=== PATIENT | female | born 1925 | race Caucasian/White ===

== ENCOUNTER 2016-12-29 12:05 | Inpatient (IN) | payer OTHER ==
[~2016-12-29] VITALS: Ht 162.6 cm; Wt 86.7 kg
[2016-12-29] MEDS ORDERED: SODIUM CHLORIDE 0.9% 1000ML 1,000 ML IV STA (12:28)
--- NOTE | 2016-12-29 12:57 | DIAGNOSTIC IMAGING REPORT ---
SINGLE VIEW CHEST CLINICAL HISTORY: Generalized weakness. FINDINGS: An AP, portable, upright chest radiograph is obtained. No prior studies are available for comparison at the time of dictation. The examination is degraded by portable technique and patient rotation. The heart is enlarged and there is atherosclerotic calcification of the thoracic aorta. A hiatal hernia is identified. The pulmonary vasculature is noncongested. There is chronic appearing interstitial thickening and elevation of right hemidiaphragm. A 2.0 cm calcified nodule is seen at the right lung base. There is no airspace consolidation typical for pneumonia or large pleural effusion. Apical scarring is observed. No pneumothorax is seen. The skeletal structures are osteopenic. Degenerative change and scoliosis are noted in the thoracic spine. IMPRESSION: 1. Cardiomegaly without radiographic evidence of congestive failure. 2. There is no airspace consolidation or large pleural effusion. 3. Hiatal hernia. 4. A 2.0 cm calcified nodule is seen at the right lung base. This likely represents a granuloma or hamartoma. Electronically signed by: Gomez Charles M.D. 12/29/2016 12:56 PM Dictated Date/Time: 12/29/2016 12:54 PM
[2016-12-29] MEDS ORDERED: PRLSR20 PO (13:08)
[2016-12-29] MEDS ORDERED: ATOR10TA82 PO (13:08)
[2016-12-29] MEDS ORDERED: SPIR25TA89 PO (13:08)
[2016-12-29] MEDS ORDERED: DABI150C PO (13:08)
[2016-12-29] MEDS ORDERED: FURO20TA PO (13:08)
[2016-12-29] MEDS ORDERED: SOTA80TA PO (13:08)
[2016-12-29 13:12] LABS: BASO % 0.1 %; BASO ABS # 0.02 K/uL (0-0.2); COMPLETE YES; EOS % 0.3 %; HEMATOCRIT 45.1 % (37-47); IG% 0.4 %; LYMPH % 7.1 %; LYMPH ABS # 1.35 K/uL (1.2-3.4); MEAN CORPUSCULAR HEMOGLOBIN 32.5 pg (25-34); MEAN CORPUSCULAR HGB CONC 34.6 g/dl (32-36); MEAN PLATELET VOLUME 11.3 fL (7.4-10.4); MONO % 8.3 %; NEUT % 83.8 %; PLATELET COUNT 264 K/uL (130-400); WHITE BLOOD COUNT 18.94 K/uL (4.8-10.8)
[2016-12-29 13:18] LABS: BLOOD UREA NITROGEN 12 mg/dl (7-18); GLUCOSE 131 mg/dl (70-99)
[2016-12-29 13:19] LABS: ALT/SGPT 19 U/L (12-78); BUN/CREATININE RATIO 10.8 (10-20); CARBON DIOXIDE 24 mmol/L (21-32); CHLORIDE 103 mmol/L (98-107); MAGNESIUM 2.2 mg/dl (1.8-2.4); POTASSIUM 3.9 mmol/L (3.5-5.1); SODIUM 138 mmol/L (136-145)
[2016-12-29 13:20] LABS: INR 1.1 (0.9-1.1); PARTIAL THROMBOPLASTIN RATIO 1.7; PROTHROMBIN TIME (PATIENT) 12.3 SECONDS (9.0-12.0)
[2016-12-29 13:29] LABS: ALKALINE PHOSPHATASE 152 U/L (45-117); AST/SGOT 12 U/L (15-37)
--- NOTE | 2016-12-29 14:25 | DIAGNOSTIC IMAGING REPORT ---
ULTRASOUND RIGHT UPPER QUADRANT ABDOMEN CLINICAL HISTORY: Indigestion. Right-sided chest pain. Leukocytosis. COMPARISON STUDY: No priors. TECHNIQUE: Real-time, grayscale, and color flow sonography of the right upper quadrant of the abdomen was performed. Images are reviewed in the transverse and longitudinal planes. FINDINGS: Liver: The liver is normal in size and echotexture. There is no intrahepatic biliary ductal dilatation. The main portal vein is patent. Gallbladder: The gallbladder is normal in appearance. No gallstones are identified. There is no gallbladder wall thickening or pericholecystic fluid. A sonographic Castro's sign is reportedly absent. The common bile duct measures up to 0.6 cm in diameter. Pancreas: Visualized portions of the pancreatic head and body are normal in appearance. Right kidney: Survey images of the right kidney demonstrate cortical atrophy. There is no hydronephrosis. Ascites: None. IMPRESSION: No acute sonographic abnormality is identified in the right upper quadrant. No gallstones are seen. Electronically signed by: Gomez Charles M.D. 12/29/2016 2:24 PM Dictated Date/Time: 12/29/2016 2:22 PM
[2016-12-29 14:43] LABS: URINE APPEARANCE CLEAR (CLEAR); URINE BILIRUBIN NEG (NEG); URINE COLOR YELLOW; URINE EPITHELIAL CELL AUTO >30 /lpf (0-5); URINE NITRITE NEG (NEG); URINE SPECIFIC GRAVITY 1.014 (1.000-1.030); UROBILINOGEN NEG (NEG)
[2016-12-29 14:47] LABS: MANUAL MICROSCOPIC REQUIRED? NO; REVIEW REQ? YES
[2016-12-29 14:55] LABS: URINE MUCUS PRESENT (NONE PRSENT)
[2016-12-29] MEDS ORDERED: CEFTRIAXONE SOD INJ 1 GM ADDVIAL IV STA (15:09)
[2016-12-29 16:05] VITALS: O2SAT 95; BMI 32.9
[2016-12-29] MEDS ORDERED: ACETAMINOPHEN 325 MG TAB PO PRN (16:15)
[2016-12-29] MEDS ORDERED: ONDANSETRON INJ 2 MG/ML 2 ML VIAL IV PRN (16:15)
[2016-12-29] MEDS ORDERED: PANTOprazole INJ 40 MG in SYRINGE 0 ML IV ONE (16:30)
[2016-12-29 16:36] VITALS: Ht 162.6 cm; Wt 86.7 kg
--- NOTE | 2016-12-29 16:59 | History and Physical ---
History & Physical Date & Time of Service: Dec 29, 2016 at 16:31 Chief Complaint: Very Tired, Don't Feel Well Primary Care Physician: Aime Aparicio M.D. History of Present Illness Source: patient, family Patient is an 89 Yr old female with PMH of Atrial fibrillation on pradaxa, CKD III, GERD, HTN, HLP, lumbago and other problems presents with history of generalized weakness and not feeling herself since last 2 days. She feels she had indigestion and has been burping a lot and has nausea since 2 days. Reports taking omeprazole at home without much help. Gives history of recent travel to [place] where she was in contact with her daughter who was recovering from a viral illness. Reports associated poor oral intake secondary to decreased appetite and feeling to have cold like symptoms. Has chronic runny nose. Also reports right sided discomfort under her right breast which is intermittent and improves with support. Denies any history of fever, chest pain, SOB, cough, abd pain, diarrhea, urinary symptoms (frequency, burning, hematuria). Also denies any history of visual changes, LOC, rash, leg swelling. She has not been taking her medications since 2 days secondary to nausea. No other relevant history could be obtained. Past Medical/Surgical History Medical Problems: (1) Atrial fibrillation Status: Chronic (2) Atrial fibrillation Status: Chronic (3) Hypertension Status: Chronic Surgical Problems: (1) S/P hernia repair Status: Resolved (2) S/P hip replacement Status: Resolved Family History Reviewed. Not relevant Social History Smoking Status: Former Smoker Alcohol Use: socially Drug Use: none Allergies Coded Allergies: No Known Allergies (Unverified , 12/29/16) Home Medications Scheduled Atorvastatin (Lipitor), 10 MG PO Q2D Dabigatran Etexilate Mesylate (Pradaxa), 150 MG PO BID Furosemide (Lasix), 20 MG PO DAILY Sotalol Hcl (Sotalol Hcl), 1 TAB PO BID Spironolactone (Aldactone), 25 MG PO DAILY Scheduled PRN Omeprazole (Prilosec), 20 MG PO DAILY PRN for GI Upset Review of Systems See HPI for pertinent positives & negatives. A total of 10 systems reviewed and were otherwise negative. Physical Exam Vital Signs Date Time Temp Pulse Resp B/P (MAP) Pulse Ox O2 Delivery O2 Flow Rate FiO2 12/29/16 15:50 83 21 164/101 95 12/29/16 15:35 73 19 93 12/29/16 13:50 85 15 93 12/29/16 13:48 88 16 168/93 94 Room Air 12/29/16 13:41 168/93 12/29/16 13:35 100 19 93 12/29/16 13:20 108 26 93 12/29/16 13:05 106 20 93 12/29/16 12:58 92 12/29/16 12:51 94 Room Air 12/29/16 12:50 115 25 12/29/16 12:06 36.7 102 17 144/83 96 Room Air General Appearance: WD/WN, no apparent distress Head: normocephalic, atraumatic Eyes: normal inspection, PERRL, EOMI ENT: normal ENT inspection, hearing grossly normal Neck: supple, trachea midline Respiratory/Chest: chest non-tender, lungs clear, normal breath sounds, no respiratory distress, no accessory muscle use Cardiovascular: no edema, no murmur, + irregularly irregular Abdomen/GI: normal bowel sounds, non tender, soft, no organomegaly Back: normal inspection Extremities/Musculoskelatal: normal inspection, no pedal edema 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 nml as tested, no motor/sensory deficits, alert, normal mood/affect, oriented x 3 Skin: normal color, warm/dry, no rash Diagnostics Laboratory Results Results Past 24 Hours Test 12/29/16 12:50 12/29/16 13:35 12/29/16 16:16 Range/Units White Blood Count 18.94 4.8-10.8 K/uL Red Blood Count 4.80 4.2-5.4 M/uL Hemoglobin 15.6 12.0-16.0 g/dL Hematocrit 45.1 37-47 % Mean Corpuscular Volume 94.0 80-100 fL Mean Corpuscular Hemoglobin 32.5 25-34 pg Mean Corpuscular Hemoglobin Concent 34.6 32-36 g/dl Platelet Count 264 130-400 K/uL Mean Platelet Volume 11.3 7.4-10.4 fL Neutrophils (%) (Auto) 83.8 % Lymphocytes (%) (Auto) 7.1 % Monocytes (%) (Auto) 8.3 % Eosinophils (%) (Auto) 0.3 % Basophils (%) (Auto) 0.1 % Neutrophils # (Auto) 15.87 1.4-6.5 K/uL Lymphocytes # (Auto) 1.35 1.2-3.4 K/uL Monocytes # (Auto) 1.57 0.11-0.59 K/uL Eosinophils # (Auto) 0.05 0-0.5 K/uL Basophils # (Auto) 0.02 0-0.2 K/uL RDW Standard Deviation 45.6 36.4-46.3 fL RDW Coefficient of Variation 13.2 11.5-14.5 % Immature Granulocyte % (Auto) 0.4 % Immature Granulocyte # (Auto) 0.08 0.00-0.02 K/uL Prothrombin Time 12.3 9.0-12.0 SECONDS Prothromb Time International Ratio 1.1 0.9-1.1 Activated Partial Thromboplast Time 44.8 21.0-31.0 SECONDS Partial Thromboplastin Ratio 1.7 Sodium Level 138 136-145 mmol/L Potassium Level 3.9 3.5-5.1 mmol/L Chloride Level 103 98-107 mmol/L Carbon Dioxide Level 24 21-32 mmol/L Anion Gap 11.0 3-11 mmol/L Blood Urea Nitrogen 12 7-18 mg/dl Creatinine 1.10 0.60-1.20 mg/dl Est Creatinine Clear Calc Drug Dose 36.6 ml/min Estimated GFR () 51.5 Estimated GFR (Non- 44.5 BUN/Creatinine Ratio 10.8 10-20 Random Glucose 131 70-99 mg/dl Calcium Level 9.0 8.5-10.1 mg/dl Magnesium Level 2.2 1.8-2.4 mg/dl Total Bilirubin 1.0 0.2-1 mg/dl Direct Bilirubin 0.2 0-0.2 mg/dl Aspartate Amino Transf (AST/SGOT) 12 15-37 U/L Alanine Aminotransferase (ALT/SGPT) 19 12-78 U/L Alkaline Phosphatase 152 45-117 U/L Total Creatine Kinase 20 26-192 U/L Creatine Kinase MB < 0.5 0.5-3.6 ng/ml Creatine Kinase MB Ratio 0-3.0 Troponin I < 0.015 0-0.045 ng/ml Total Protein 7.8 6.4-8.2 gm/dl Albumin 3.2 3.4-5.0 gm/dl Thyroid Stimulating Hormone (TSH) 2.540 0.300-4.500 uIu/ml Urine Color YELLOW Urine Appearance CLEAR CLEAR Urine pH 6.0 4.5-7.5 Urine Specific [place] 1.014 1.000-1.030 Urine Protein TRACE NEG Urine Glucose (UA) NEG NEG Urine Ketones 1+ NEG Urine Occult Blood 2+ NEG Urine Nitrite NEG NEG Urine Bilirubin NEG NEG Urine Urobilinogen NEG NEG Urine Leukocyte Esterase NEG NEG Urine WBC (Auto) 1-5 0-5 /hpf Urine RBC (Auto) 10-30 0-4 /hpf Urine Hyaline Casts (Auto) 5-10 0-5 /lpf Urine Epithelial Cells (Auto) >30 0-5 /lpf Urine Bacteria (Auto) 1+ NEG Urine Renal Epithelial Cells 0-5 /lpf Urine Pathogenic Casts 0 /lpf Urine Mucus PRESENT NONE PRSENT Microbiology Results 12/29/16 Blood Culture, Kathy Batch Pending 12/29/16 Blood Culture, Kathy Batch Pending 12/29/16 Urine Culture, Received Pending Diagnostic Radiology CXR: 1. Cardiomegaly without radiographic evidence of congestive failure. 2. There is no airspace consolidation or large pleural effusion. 3. Hiatal hernia. 4. A 2.0 cm calcified nodule is seen at the right lung base. This likely represents a granuloma or hamartoma. Gall bladder USD: : No acute sonographic abnormality is identified in the right upper quadrant. No gallstones are seen. EKG EKG: Normal sinus rhythm with sinus arrhythmia Right bundle branch block Abnormal ECG No previous ECGs available Impression Assessment and Plan SIRS: Presented with Tachycardia, leukocytosis UA: possible UTI. denies urinary symptoms CXR: no signs of consolidation Gall bladder USD:no acute process Start Ceftriaxone empirically for possible UTI Check PCR for flu Blood and Urine cultures Check procalcitonin, lactate levels IV Fluids Generalized weakness; Likely secondary to acute illness PT/OT Right sided Chest discomfort: Likely not ACS, Likely GERD EKG: no signs of ischemia 1st set troponin negative Trend cardiac enzymes Repeat EKG with chest pain GERD: Presents with belching Start PPI takes over the counter omeprazole PRN Atrial fibrillation: Missed medications since 2 days continue sotalol, Pradaxa monitor in tele HTN: hold diuretics in setting of SIRS Stable CKD III: Cr at baseline Monitor renal function HLP: continue statins DVT Px: On Pradaxa CODE STATUS: Full code Disposition: PT/OT tax services manager consulted VTE Prophylaxis VTE Risk Assessment Done? Y/N: Yes Risk Level: Moderate
--- NOTE | 2016-12-29 18:10 | EMERGENCY ROOM VISIT NOTE ---
History Report prepared by Judy: Tico Iyer Under the Supervision of: Dr. Marco A Acosta M.D. First contact with patient: 12:20 Chief Complaint: ILLNESS Stated Complaint: VERY TIRED, DON'T FEEL WELL History of Present Illness The patient is a 89 year old female who presents to the Emergency Room with complaints of an episode of chest pain occurring yesterday days ago. She states "I have just felt very uncomfortable". She states that she began being "unable to get comfortable" two days ago. The patient notes that she has not had much to eat recently. She localizes her chest pain to under her right breast and describes it as a feeling of "tightness". She notes that she had a large amount of belching at the time of her chest pain. Nothing worsens her pain. The patient a history of a-fib and hypertension. She states that she has experienced some back pain and a headache. Pt denies LOC, fevers, chills, diaphoresis, visual changes, neck pain, tearing pain radiating to the back, personal history or family history of aneurysm or pulmonary embolism, breathing difficulties, increased leg swelling, coagulation abnormalities, prolonged travel, recent surgery or immobilization, nausea, vomiting, abdominal pain, melena, hematochezia, urinary symptoms, numbness, weakness, lymphadenopathy, rash, or other complaints. Source of History: patient Onset: Yesterday Position: chest (under right breast) Quality: other ("tightness") Timing: other (episode) Modifying Factors (Worsening): other (none) Associated Symptoms: + headache, + back pain, No SOB, No nausea Review of Systems See HPI for pertinent positives and negatives. A total of ten systems were reviewed and were otherwise negative. Past Medical & Surgical Medical Problems: (1) Atrial fibrillation (2) Atrial fibrillation (3) Generalized weakness (4) Hypertension Surgical Problems: (1) S/P hernia repair (2) S/P hip replacement Family History No pertinent family history stated. Social History Smoking Status: Never Smoker Housing Status: lives with family Current/Historical Medications Scheduled Atorvastatin (Lipitor), 10 MG PO Q2D Dabigatran Etexilate Mesylate (Pradaxa), 150 MG PO BID Furosemide (Lasix), 20 MG PO DAILY Sotalol Hcl (Sotalol Hcl), 1 TAB PO BID Spironolactone (Aldactone), 25 MG PO DAILY Scheduled PRN Omeprazole (Prilosec), 20 MG PO DAILY PRN for GI Upset Allergies Coded Allergies: No Known Allergies (Unverified , 12/29/16) Physical Exam Vital Signs Date Time Temp Pulse Resp B/P (MAP) Pulse Ox O2 Delivery O2 Flow Rate FiO2 12/29/16 16:05 95 Room Air 12/29/16 15:50 83 21 164/101 95 12/29/16 15:35 73 19 93 12/29/16 13:50 85 15 93 12/29/16 13:48 88 16 168/93 94 Room Air 12/29/16 13:41 168/93 12/29/16 13:35 100 19 93 12/29/16 13:20 108 26 93 12/29/16 13:05 106 20 93 12/29/16 12:58 92 12/29/16 12:51 94 Room Air 12/29/16 12:50 115 25 12/29/16 12:06 36.7 102 17 144/83 96 Room Air Physical Exam GENERAL: Awake, alert, well-appearing, in no distress HENT: Normocephalic, atraumatic. Oropharynx unremarkable. EYES: Normal conjunctiva. Sclera non-icteric. NECK: Supple. No nuchal rigidity. FROM. No JVD. RESPIRATORY: Clear to auscultation. CARDIAC: Irregular rhythm and borderline tachycardic. Extremities warm and well perfused. Pulses equal. ABDOMEN: Soft, non-distended. No tenderness to palpation. No rebound or guarding. No masses. RECTAL: Deferred. MUSCULOSKELETAL: Chest examination reveals no tenderness. The back is symmetrical on inspection without obvious abnormality. There is no CVA tenderness to palpation. No joint edema. LOWER EXTREMITIES: Calves are equal size bilaterally and non-tender. No edema. No discoloration. Mild swelling of the right second toe without tenderness. Good capillary refill. NEURO: Normal sensorium. No sensory or motor deficits noted. SKIN: No rash or jaundice noted. Medical Decision & Procedures ER Provider Diagnostic Interpretation: Radiology results as stated below per my review and radiologist interpretation: SINGLE VIEW CHEST FINDINGS: An AP, portable, upright chest radiograph is obtained. No prior studies are available for comparison at the time of dictation. The examination is degraded by portable technique and patient rotation. The heart is enlarged and there is atherosclerotic calcification of the thoracic aorta. A hiatal hernia is identified. The pulmonary vasculature is noncongested. There is chronic appearing interstitial thickening and elevation of right hemidiaphragm. A 2.0 cm calcified nodule is seen at the right lung base. There is no airspace consolidation typical for pneumonia or large pleural effusion. Apical scarring is observed. No pneumothorax is seen. The skeletal structures are osteopenic. Degenerative change and scoliosis are noted in the thoracic spine. IMPRESSION: 1. Cardiomegaly without radiographic evidence of congestive failure. 2. There is no airspace consolidation or large pleural effusion. 3. Hiatal hernia. 4. A 2.0 cm calcified nodule is seen at the right lung base. This likely represents a granuloma or hamartoma. Electronically signed by: Gomez Charles M.D. ULTRASOUND RIGHT UPPER QUADRANT ABDOMEN FINDINGS: Liver: The liver is normal in size and echotexture. There is no intrahepatic biliary ductal dilatation. The main portal vein is patent. Gallbladder: The gallbladder is normal in appearance. No gallstones are identified. There is no gallbladder wall thickening or pericholecystic fluid. A sonographic Castro's sign is reportedly absent. The common bile duct measures up to 0.6 cm in diameter. Pancreas: Visualized portions of the pancreatic head and body are normal in appearance. Right kidney: Survey images of the right kidney demonstrate cortical atrophy. There is no hydronephrosis. Ascites: None. IMPRESSION: No acute sonographic abnormality is identified in the right upper quadrant. No gallstones are seen. Electronically signed by: Gomez Charles M.D. Laboratory Results 12/29/16 12:50 Red Blood Count 4.80, Mean Corpuscular Volume 94.0, Mean Corpuscular Hemoglobin 32.5, Mean Corpuscular Hemoglobin Concent 34.6, Mean Platelet Volume 11.3, Neutrophils (%) (Auto) 83.8, Lymphocytes (%) (Auto) 7.1, Monocytes (%) (Auto) 8.3, Eosinophils (%) (Auto) 0.3, Basophils (%) (Auto) 0.1, Neutrophils # (Auto) 15.87, Lymphocytes # (Auto) 1.35, Monocytes # (Auto) 1.57, Eosinophils # (Auto) 0.05, Basophils # (Auto) 0.02 12/29/16 12:50 Test 12/29/16 12:50 12/29/16 13:35 12/29/16 16:16 12/29/16 16:45 White Blood Count 18.94 K/uL (4.8-10.8) Red Blood Count 4.80 M/uL (4.2-5.4) Hemoglobin 15.6 g/dL (12.0-16.0) Hematocrit 45.1 % (37-47) Mean Corpuscular Volume 94.0 fL (80-100) Mean Corpuscular Hemoglobin 32.5 pg (25-34) Mean Corpuscular Hemoglobin Concent 34.6 g/dl (32-36) Platelet Count 264 K/uL (130-400) Mean Platelet Volume 11.3 fL (7.4-10.4) Neutrophils (%) (Auto) 83.8 % Lymphocytes (%) (Auto) 7.1 % Monocytes (%) (Auto) 8.3 % Eosinophils (%) (Auto) 0.3 % Basophils (%) (Auto) 0.1 % Neutrophils # (Auto) 15.87 K/uL (1.4-6.5) Lymphocytes # (Auto) 1.35 K/uL (1.2-3.4) Monocytes # (Auto) 1.57 K/uL (0.11-0.59) Eosinophils # (Auto) 0.05 K/uL (0-0.5) Basophils # (Auto) 0.02 K/uL (0-0.2) RDW Standard Deviation 45.6 fL (36.4-46.3) RDW Coefficient of Variation 13.2 % (11.5-14.5) Immature Granulocyte % (Auto) 0.4 % Immature Granulocyte # (Auto) 0.08 K/uL (0.00-0.02) Prothrombin Time 12.3 SECONDS (9.0-12.0) Prothromb Time International Ratio 1.1 (0.9-1.1) Activated Partial Thromboplast Time 44.8 SECONDS (21.0-31.0) Partial Thromboplastin Ratio 1.7 Anion Gap 11.0 mmol/L (3-11) Est Creatinine Clear Calc Drug Dose 36.6 ml/min Estimated GFR () 51.5 Estimated GFR (Non- 44.5 BUN/Creatinine Ratio 10.8 (10-20) Calcium Level 9.0 mg/dl (8.5-10.1) Magnesium Level 2.2 mg/dl (1.8-2.4) Total Bilirubin 1.0 mg/dl (0.2-1) Direct Bilirubin 0.2 mg/dl (0-0.2) Aspartate Amino Transf (AST/SGOT) 12 U/L (15-37) Alanine Aminotransferase (ALT/SGPT) 19 U/L (12-78) Alkaline Phosphatase 152 U/L (45-117) Total Creatine Kinase 20 U/L (26-192) Total Protein 7.8 gm/dl (6.4-8.2) Albumin 3.2 gm/dl (3.4-5.0) Procalcitonin 0.06 ng/ml (0-0.5) Thyroid Stimulating Hormone (TSH) 2.540 uIu/ml (0.300-4.500) Urine Color YELLOW Urine Appearance CLEAR (CLEAR) Urine pH 6.0 (4.5-7.5) Urine Specific [place] 1.014 (1.000-1.030) Urine Protein TRACE (NEG) Urine Glucose (UA) NEG (NEG) Urine Ketones 1+ (NEG) Urine Occult Blood 2+ (NEG) Urine Nitrite NEG (NEG) Urine Bilirubin NEG (NEG) Urine Urobilinogen NEG (NEG) Urine Leukocyte Esterase NEG (NEG) Urine WBC (Auto) 1-5 /hpf (0-5) Urine RBC (Auto) 10-30 /hpf (0-4) Urine Hyaline Casts (Auto) 5-10 /lpf (0-5) Urine Epithelial Cells (Auto) >30 /lpf (0-5) Urine Bacteria (Auto) 1+ (NEG) Urine Renal Epithelial Cells /lpf (0-5) Urine Pathogenic Casts /lpf (0) Urine Mucus PRESENT (NONE PRSENT) Test 12/29/16 18:00 Creatine Kinase MB Ratio (0-3.0) Laboratory results reviewed by me Medications Administered Medications (Trade) Dose Ordered Sig/Betty Route Start Time Stop Time Status Last Admin Dose Admin Sodium Chloride 1,000 ml @ 125 mls/hr Q8H STAT IV 12/29/16 12:28 12/29/16 20:27 12/29/16 12:28 125 MLS/HR Ceftriaxone Sodium (Rocephin Inj) 1 gm NOW STAT IV 12/29/16 15:09 12/29/16 15:10 DC 12/29/16 16:36 1 GM Pantoprazole Sodium 40 mg/ Syringe 10 ml @ 5 mls/min 1630 ONCE IV 12/29/16 16:30 12/29/16 16:31 DC 12/29/16 16:36 5 MLS/MIN ECG Indication: chest pain Rate (beats per minute): 71 Rhythm: sinus with SA Findings: RBBB, no acute ischemic change ED Course 1226: The patient was evaluated in room A3. A complete history and physical exam was performed. 1228: Ordered Sodium Chloride 1000 ml @ 125 mls/hr IV. 1509: Ordered Rocephin Inj 1 gm IV. 1512: Upon reexamination, the patient was resting comfortably. I discussed the test results and treatment plan with her. The patient will be evaluated for further management. 1726: The patient told nursing staff that she is considering leaving. I spoke with the patient and reaffirmed her. She is comfortable with staying. Medical Decision Triage Nursing notes reviewed. The patient's presentation and history were concerning for chest discomfort, indigestion and malaise. Etiologies such as cardiac sources, metabolic, infection, hypo/hyperglycemia, electrolyte abnormalities, intracerebral event, toxicologic, neurologic, as well as others were entertained. Patient was evaluated. Clinically she looks well. Her ECG was nonischemic. She was in a sinus rhythm although on physical seemed somewhat irregular. The patient had an IV established. Blood work was obtained. Chest x-ray was ordered. The patient has a significant leukocytosis. Cath urinalysis was obtained and was concerning for infection. Electrolytes And cardiac markers negative. Chest x-ray did not reveal any acute findings. Ultrasound performed and did not reveal any evidence of gallbladder pathology. The patient was given a dose of IV Rocephin. I discussed further evaluation and management in the hospital. The patient was in agreement. Daughter was in agreement. Consultation was made with the [facility] hospitalist. The patient was evaluated for further management. Blood pressure screening: Patient was found to have an elevated blood pressure and was referred to their primary doctor for recheck and further treatment. Medication Reconciliation: I attest that I have personally reviewed the patient' s current medication list Consults Time Called: 1512 Consulting Physician: Dr. River Cruz Returned Call: [phone] Discussed the patient's case. The patient will be evaluated for further treatment and disposition. Impression Primary Impression: Right-sided chest pain Additional Impression: UTI (urinary tract infection) Scribe Attestation The scribe's documentation has been prepared under my direction and personally reviewed by me in its entirety. I confirm that the note above accurately reflects all work, treatment, procedures, and medical decision making performed by me. Departure Information Dispostion Being Evaluated By Hospitalist Referrals No Doctor, Assigned (PCP) Patient Instructions My [facility] Problem Qualifiers
[2016-12-29 18:17] LABS: INFLUENZA A PCR Neg for Influ A (NEG); INFLUENZA B PCR Neg for Influ B (NEG)
[2016-12-29] MEDS: SODIUM CHLORIDE 0.9% 1000ML 1,000 ML IV SCH (18:46)
[2016-12-29 18:54] VITALS: BP 140/68; PULSE 78; TEMP 36.6; O2SAT 93
[2016-12-29] MEDS ORDERED: ATORVASTATIN 10 MG TAB PO SCH (19:00)
[2016-12-29] MEDS: SOTALOL HCL 80 MG TAB PO SCH (19:39)
[2016-12-29] MEDS: DABIGATRAN ELEXILATE 75 MG CAP PO SCH (19:47)
[2016-12-29 20:00] VITALS: O2SAT 93
[2016-12-29 23:44] VITALS: BP 147/81; PULSE 75; TEMP 37.1; O2SAT 94
[2016-12-30] VITALS (8 sets, daily range): BP systolic 110–148; BP diastolic 62–77; PULSE 64–80; TEMP 36.6–37; O2SAT 92–95
[2016-12-30] MEDS: SODIUM CHLORIDE 0.9% 1000ML 1,000 ML IV SCH (05:22)
[2016-12-30 05:57] LABS: BASO % 0.1 %; BASO ABS # 0.01 K/uL (0-0.2); COMPLETE YES; EOS % 1.1 %; IG% 0.3 %; LYMPH ABS # 1.93 K/uL (1.2-3.4); MEAN CELL VOLUME 94.8 fL (80-100); MEAN CORPUSCULAR HEMOGLOBIN 31.8 pg (25-34); MEAN CORPUSCULAR HGB CONC 33.5 g/dl (32-36); MEAN PLATELET VOLUME 11.5 fL (7.4-10.4); MONO % 9.4 %; NEUT % 74.1 %; PLATELET COUNT 211 K/uL (130-400); RED BLOOD COUNT 4.22 M/uL (4.2-5.4); WHITE BLOOD COUNT 12.85 K/uL (4.8-10.8)
[2016-12-30 06:22] LABS: BUN/CREATININE RATIO 15.1 (10-20); CREATININE 0.79 mg/dl (0.60-1.20); POTASSIUM 3.8 mmol/L (3.5-5.1)
[2016-12-30 07:17] LABS: CALCIUM 8.6 mg/dl (8.5-10.1)
[2016-12-30] MEDS: SOTALOL HCL 80 MG TAB PO SCH ×2 (08:10→20:19)
[2016-12-30] MEDS: DABIGATRAN ELEXILATE 75 MG CAP PO SCH ×2 (08:10→20:20)
--- NOTE | 2016-12-30 08:53 | Progress Note ---
Internal Med Progress Note Date of Service: Dec 30, 2016. Provider Documentation: SUBJECTIVE: Seen and examined at bedside. States feeling much better today. Weakness is improved. Right sided chest pain resolved Denies SOB, dizziness. Belching is resolved. OBJECTIVE: Vital Signs-as noted below General Appearance: WD/WN, no apparent distress Head: normocephalic, atraumatic Eyes: normal inspection, PERRL, EOMI ENT: normal ENT inspection, hearing grossly normal Neck: supple, trachea midline Respiratory/Chest: chest non-tender, lungs clear, normal breath sounds, no respiratory distress, no accessory muscle use Cardiovascular: no edema, no murmur, + irregularly irregular Abdomen/GI: normal bowel sounds, non tender, soft, no organomegaly Back: normal inspection Extremities/Musculoskelatal: normal inspection, no pedal edema Neurologic/Psych: top closer II-XII nml as tested, no motor/sensory deficits, alert, normal mood/affect, oriented x 3 Skin: normal color, warm/dry, no rash Lab data as noted below. ASSESSMENT & PLAN: SIRS: Presented with Tachycardia, leukocytosis SIRS parameters improving UA: possible UTI. denies urinary symptoms CXR: no signs of consolidation Gall bladder USD:no acute process Continue Ceftriaxone empirically for possible UTI PCR for flu: Negative Blood and Urine cultures:Pending Procalcitonin, lactate levels:Negative Will DC IV Fluids Generalized weakness; Likely secondary to acute illness PT/OT Right sided Chest discomfort: Likely not ACS, Likely GERD EKG: no signs of ischemia Cardiac enzymes negative Repeat EKG with chest pain Will switch to PO PPI in AM GERD: Presents with belching Much improved Continue PPI takes over the counter omeprazole PRN Atrial fibrillation: Missed medications since 2 days continue sotalol, Pradaxa monitor in tele HTN: hold diuretics in setting of SIRS Stable Resume diuretics in AM is stable CKD III: Cr at baseline Monitor renal function HLP: continue statins DVT Px: On Pradaxa CODE STATUS: Full code Disposition: PT/OT child and family services specialist consulted Will transfer to medical floor Likely discharge in next 24-48 hours Vital Signs: Date Time Temp Pulse Resp B/P (MAP) Pulse Ox O2 Delivery O2 Flow Rate FiO2 12/30/16 08:29 36.8 71 16 110/76 (87) 92 Room Air 12/30/16 04:20 37.0 64 18 148/76 (100) 94 Room Air 12/30/16 04:09 93 Room Air 12/30/16 00:21 93 Room Air 12/29/16 23:44 37.1 75 18 147/81 (103) 94 Room Air 12/29/16 20:00 93 Room Air 12/29/16 18:54 36.6 78 16 140/68 (92) 93 Room Air 12/29/16 18:13 72 20 140/92 95 12/29/16 18:12 72 20 140/92 95 Room Air 12/29/16 16:05 95 Room Air 12/29/16 15:50 83 21 164/101 95 12/29/16 15:35 73 19 93 12/29/16 13:50 85 15 93 12/29/16 13:48 88 16 168/93 94 Room Air 12/29/16 13:41 168/93 12/29/16 13:35 100 19 93 12/29/16 13:20 108 26 93 12/29/16 13:05 106 20 93 12/29/16 12:58 92 12/29/16 12:51 94 Room Air 12/29/16 12:50 115 25 12/29/16 12:06 36.7 102 17 144/83 96 Room Air Lab Results: Results Past 24 Hours Test 12/29/16 12:50 12/29/16 13:35 12/29/16 16:45 12/29/16 18:00 Range/Units White Blood Count 18.94 4.8-10.8 K/uL Red Blood Count 4.80 4.2-5.4 M/uL Hemoglobin 15.6 12.0-16.0 g/dL Hematocrit 45.1 37-47 % Mean Corpuscular Volume 94.0 80-100 fL Mean Corpuscular Hemoglobin 32.5 25-34 pg Mean Corpuscular Hemoglobin Concent 34.6 32-36 g/dl Platelet Count 264 130-400 K/uL Mean Platelet Volume 11.3 7.4-10.4 fL Neutrophils (%) (Auto) 83.8 % Lymphocytes (%) (Auto) 7.1 % Monocytes (%) (Auto) 8.3 % Eosinophils (%) (Auto) 0.3 % Basophils (%) (Auto) 0.1 % Neutrophils # (Auto) 15.87 1.4-6.5 K/uL Lymphocytes # (Auto) 1.35 1.2-3.4 K/uL Monocytes # (Auto) 1.57 0.11-0.59 K/uL Eosinophils # (Auto) 0.05 0-0.5 K/uL Basophils # (Auto) 0.02 0-0.2 K/uL RDW Standard Deviation 45.6 36.4-46.3 fL RDW Coefficient of Variation 13.2 11.5-14.5 % Immature Granulocyte % (Auto) 0.4 % Immature Granulocyte # (Auto) 0.08 0.00-0.02 K/uL Prothrombin Time 12.3 9.0-12.0 SECONDS Prothromb Time International Ratio 1.1 0.9-1.1 Activated Partial Thromboplast Time 44.8 21.0-31.0 SECONDS Partial Thromboplastin Ratio 1.7 Sodium Level 138 136-145 mmol/L Potassium Level 3.9 3.5-5.1 mmol/L Chloride Level 103 98-107 mmol/L Carbon Dioxide Level 24 21-32 mmol/L Anion Gap 11.0 3-11 mmol/L Blood Urea Nitrogen 12 7-18 mg/dl Creatinine 1.10 0.60-1.20 mg/dl Est Creatinine Clear Calc Drug Dose 36.6 ml/min Estimated GFR () 51.5 Estimated GFR (Non- 44.5 BUN/Creatinine Ratio 10.8 10-20 Random Glucose 131 70-99 mg/dl Calcium Level 9.0 8.5-10.1 mg/dl Magnesium Level 2.2 1.8-2.4 mg/dl Total Bilirubin 1.0 0.2-1 mg/dl Direct Bilirubin 0.2 0-0.2 mg/dl Aspartate Amino Transf (AST/SGOT) 12 15-37 U/L Alanine Aminotransferase (ALT/SGPT) 19 12-78 U/L Alkaline Phosphatase 152 45-117 U/L Total Creatine Kinase 20 26-192 U/L Creatine Kinase MB < 0.5 0.5-3.6 ng/ml Creatine Kinase MB Ratio 0-3.0 Troponin I < 0.015 0-0.045 ng/ml Total Protein 7.8 6.4-8.2 gm/dl Albumin 3.2 3.4-5.0 gm/dl Procalcitonin 0.06 0-0.5 ng/ml Thyroid Stimulating Hormone (TSH) 2.540 0.300-4.500 uIu/ml Urine Color YELLOW Urine Appearance CLEAR CLEAR Urine pH 6.0 4.5-7.5 Urine Specific Hines 1.014 1.000-1.030 Urine Protein TRACE NEG Urine Glucose (UA) NEG NEG Urine Ketones 1+ NEG Urine Occult Blood 2+ NEG Urine Nitrite NEG NEG Urine Bilirubin NEG NEG Urine Urobilinogen NEG NEG Urine Leukocyte Esterase NEG NEG Urine WBC (Auto) 1-5 0-5 /hpf Urine RBC (Auto) 10-30 0-4 /hpf Urine Hyaline Casts (Auto) 5-10 0-5 /lpf Urine Epithelial Cells (Auto) >30 0-5 /lpf Urine Bacteria (Auto) 1+ NEG Urine Renal Epithelial Cells 0-5 /lpf Urine Pathogenic Casts 0 /lpf Urine Mucus PRESENT NONE PRSENT Influenza Type A (RT-PCR) Neg for Influ A NEG Influenza Type B (RT-PCR) Neg for Influ B NEG Test 12/29/16 19:47 12/30/16 00:00 12/30/16 00:33 12/30/16 05:18 Range/Units Lactic Acid Level 1.1 0.4-2.0 mmol/L Creatine Kinase MB < 0.5 1.0 0.5-3.6 ng/ml Troponin I < 0.015 < 0.015 0-0.045 ng/ml Creatine Kinase MB Ratio 0-3.0 White Blood Count 12.85 4.8-10.8 K/uL Red Blood Count 4.22 4.2-5.4 M/uL Hemoglobin 13.4 12.0-16.0 g/dL Hematocrit 40.0 37-47 % Mean Corpuscular Volume 94.8 80-100 fL Mean Corpuscular Hemoglobin 31.8 25-34 pg Mean Corpuscular Hemoglobin Concent 33.5 32-36 g/dl Platelet Count 211 130-400 K/uL Mean Platelet Volume 11.5 7.4-10.4 fL Neutrophils (%) (Auto) 74.1 % Lymphocytes (%) (Auto) 15.0 % Monocytes (%) (Auto) 9.4 % Eosinophils (%) (Auto) 1.1 % Basophils (%) (Auto) 0.1 % Neutrophils # (Auto) 9.52 1.4-6.5 K/uL Lymphocytes # (Auto) 1.93 1.2-3.4 K/uL Monocytes # (Auto) 1.21 0.11-0.59 K/uL Eosinophils # (Auto) 0.14 0-0.5 K/uL Basophils # (Auto) 0.01 0-0.2 K/uL RDW Standard Deviation 47.0 36.4-46.3 fL RDW Coefficient of Variation 13.6 11.5-14.5 % Immature Granulocyte % (Auto) 0.3 % Immature Granulocyte # (Auto) 0.04 0.00-0.02 K/uL Sodium Level 142 136-145 mmol/L Potassium Level 3.8 3.5-5.1 mmol/L Chloride Level 109 98-107 mmol/L Carbon Dioxide Level 25 21-32 mmol/L Anion Gap 8.0 3-11 mmol/L Blood Urea Nitrogen 12 7-18 mg/dl Creatinine 0.79 0.60-1.20 mg/dl Est Creatinine Clear Calc Drug Dose 51.9 ml/min Estimated GFR () 76.9 Estimated GFR (Non- 66.4 BUN/Creatinine Ratio 15.1 10-20 Random Glucose 82 70-99 mg/dl Calcium Level 8.6 8.5-10.1 mg/dl Microbiology Results 12/29/16 Blood Culture, Received Pending 12/29/16 Blood Culture, Received Pending 12/29/16 Urine Culture, Received Pending
[2016-12-30] MEDS ORDERED: PANTOprazole INJ 40 MG in SYRINGE 0 ML IV SCH (11:00)
[2016-12-30] MEDS ORDERED: DOCUSATE SODIUM/SENNA 50/8.6MG TAB PO PRN (15:30)
[2016-12-30] MEDS ORDERED: CEFTRIAXONE SOD INJ 1 GM in DEXTROSE 5% ADD-VANTAGE 50ML 50 ML IV SCH (16:00)
[2016-12-31 06:53] LABS: BASO % 0.1 %; BASO ABS # 0.01 K/uL (0-0.2); COMPLETE YES; EOS % 1.7 %; HEMATOCRIT 40.1 % (37-47); IG% 0.2 %; LYMPH ABS # 1.59 K/uL (1.2-3.4); MEAN CELL VOLUME 94.6 fL (80-100); MEAN CORPUSCULAR HEMOGLOBIN 30.7 pg (25-34); MEAN CORPUSCULAR HGB CONC 32.4 g/dl (32-36); MEAN PLATELET VOLUME 10.9 fL (7.4-10.4); MONO % 9.7 %; NEUT % 72.3 %; PLATELET COUNT 230 K/uL (130-400); RED BLOOD COUNT 4.24 M/uL (4.2-5.4); WHITE BLOOD COUNT 9.95 K/uL (4.8-10.8)
[2016-12-31 07:31] LABS: BUN/CREATININE RATIO 15.8 (10-20); CALCIUM 8.7 mg/dl (8.5-10.1); CREATININE 0.98 mg/dl (0.60-1.20); POTASSIUM 3.9 mmol/L (3.5-5.1)
[2016-12-31 07:32] VITALS: BP 146/92; PULSE 70; TEMP 36.7; O2SAT 94
[2016-12-31] MEDS: SOTALOL HCL 80 MG TAB PO SCH (07:58)
[2016-12-31] MEDS: DABIGATRAN ELEXILATE 75 MG CAP PO SCH (07:58)
[2016-12-31] MEDS ORDERED: PANTOprazole SOD 40 MG TAB PO SCH (09:00)
--- NOTE | 2016-12-31 11:36 | Progress Note ---
Internal Med Progress Note Date of Service: Dec 31, 2016. Provider Documentation: SUBJECTIVE: Seen and examined at bedside. Doing well today. Offers no complaints. Eager to get discharged OBJECTIVE: Vital Signs-as noted below General Appearance: WD/WN, no apparent distress Head: normocephalic, atraumatic Eyes: normal inspection, PERRL, EOMI ENT: normal ENT inspection, hearing grossly normal Neck: supple, trachea midline Respiratory/Chest: chest non-tender, lungs clear, normal breath sounds, no respiratory distress, no accessory muscle use Cardiovascular: no edema, no murmur, + irregularly irregular Abdomen/GI: normal bowel sounds, non tender, soft, no organomegaly Back: normal inspection Extremities/Musculoskelatal: normal inspection, no pedal edema Neurologic/Psych: head of strategy II-XII nml as tested, no motor/sensory deficits, alert, normal mood/affect, oriented x 3 Skin: normal color, warm/dry, no rash Lab data as noted below. ASSESSMENT & PLAN: SIRS: Likely Viral syndrome Presented with Tachycardia, leukocytosis SIRS parameters improving UA: possible UTI. denies urinary symptoms CXR: no signs of consolidation Gall bladder USD:no acute process S/P Ceftriaxone empirically for possible UTI. DC Abx. UTI ruled out PCR for flu: Negative Blood and Urine cultures:No growth Procalcitonin, lactate levels:Negative DC IV Fluids Generalized weakness; Likely secondary to acute illness PT/OT Right sided Chest discomfort: Likely not ACS, Likely GERD EKG: no signs of ischemia Cardiac enzymes negative Repeat EKG with chest pain Continue PO PPI GERD: Presents with belching Much improved Continue PPI takes over the counter omeprazole PRN Atrial fibrillation: Missed medications since 2 days continue sotalol, Pradaxa monitor in tele HTN: hold diuretics in setting of SIRS Stable Resume diuretics in AM is stable CKD III: Cr at baseline Monitor renal function HLP: continue statins DVT Px: On Pradaxa CODE STATUS: Full code Disposition: Plan to discharge home today Follow up with Dr.Manisha Aparicio on 01/04/17 at 2:45pm Seek immediate medical attention if your symptoms reoccur or worsen Vital Signs: Date Time Temp Pulse Resp B/P (MAP) Pulse Ox O2 Delivery O2 Flow Rate FiO2 12/31/16 08:30 Room Air 12/31/16 07:32 36.7 70 18 146/92 (110) 94 Room Air 12/31/16 00:00 Room Air 12/30/16 23:42 36.7 68 18 124/62 (82) 95 Room Air 12/30/16 20:00 Room Air 12/30/16 16:15 Room Air 12/30/16 14:38 36.6 80 20 131/77 (95) 93 12/30/16 12:17 36.9 75 16 137/74 (95) 92 Room Air 12/30/16 11:53 36.8 71 16 92 Lab Results: Results Past 24 Hours Test 12/31/16 06:40 Range/Units White Blood Count 9.95 4.8-10.8 K/uL Red Blood Count 4.24 4.2-5.4 M/uL Hemoglobin 13.0 12.0-16.0 g/dL Hematocrit 40.1 37-47 % Mean Corpuscular Volume 94.6 80-100 fL Mean Corpuscular Hemoglobin 30.7 25-34 pg Mean Corpuscular Hemoglobin Concent 32.4 32-36 g/dl Platelet Count 230 130-400 K/uL Mean Platelet Volume 10.9 7.4-10.4 fL Neutrophils (%) (Auto) 72.3 % Lymphocytes (%) (Auto) 16.0 % Monocytes (%) (Auto) 9.7 % Eosinophils (%) (Auto) 1.7 % Basophils (%) (Auto) 0.1 % Neutrophils # (Auto) 7.19 1.4-6.5 K/uL Lymphocytes # (Auto) 1.59 1.2-3.4 K/uL Monocytes # (Auto) 0.97 0.11-0.59 K/uL Eosinophils # (Auto) 0.17 0-0.5 K/uL Basophils # (Auto) 0.01 0-0.2 K/uL RDW Standard Deviation 47.1 36.4-46.3 fL RDW Coefficient of Variation 13.6 11.5-14.5 % Immature Granulocyte % (Auto) 0.2 % Immature Granulocyte # (Auto) 0.02 0.00-0.02 K/uL Sodium Level 143 136-145 mmol/L Potassium Level 3.9 3.5-5.1 mmol/L Chloride Level 110 98-107 mmol/L Carbon Dioxide Level 23 21-32 mmol/L Anion Gap 10.0 3-11 mmol/L Blood Urea Nitrogen 16 7-18 mg/dl Creatinine 0.98 0.60-1.20 mg/dl Est Creatinine Clear Calc Drug Dose 41.5 ml/min Estimated GFR () 59.3 Estimated GFR (Non- 51.1 BUN/Creatinine Ratio 15.8 10-20 Random Glucose 91 70-99 mg/dl Calcium Level 8.7 8.5-10.1 mg/dl
--- NOTE | 2016-12-31 11:39 | Discharge Summary ---
Discharge Summary Date of Service Dec 31, 2016. Discharge Summary Admission Date: Dec 29, 2016 at 16:15 Discharge Date: Dec 31, 2016 Discharge Disposition: Home Principal Diagnosis: SIRS: likely viral etiology Procedures: CXR: 1. Cardiomegaly without radiographic evidence of congestive failure. 2. There is no airspace consolidation or large pleural effusion. 3. Hiatal hernia. 4. A 2.0 cm calcified nodule is seen at the right lung base. This likely represents a granuloma or hamartoma. Gall bladder USD: No acute sonographic abnormality is identified in the right upper quadrant. No gallstones are seen. Consultations: None Pending Studies/Follow-Up: Follow up with Dr.Manisha Aparicio on 01/04/17 at 2:45pm Seek immediate medical attention if your symptoms reoccur or worsen Medication Reconciliation Continued Medications: Atorvastatin (Lipitor) 10 Mg Tab 10 MG PO Q2D, TAB Dabigatran Etexilate Mesylate (Pradaxa) 150 Mg Cap 150 MG PO BID, CAP Furosemide (Lasix) 20 Mg Tab 20 MG PO DAILY Omeprazole (Prilosec) 20 Mg Capcr 20 MG PO DAILY PRN for GI Upset, CAP Sotalol Hcl (Sotalol Hcl) 80 Mg Tab 1 TAB PO BID for 90 Days, #180 TAB 3 Refills Spironolactone (Aldactone) 25 Mg Tab 25 MG PO DAILY, TAB Admission Information HPI (per Admitting provider): Patient is an 89 Yr old female with PMH of Atrial fibrillation on pradaxa, CKD III, GERD, HTN, HLP, lumbago and other problems presents with history of generalized weakness and not feeling herself since last 2 days. She feels she had indigestion and has been burping a lot and has nausea since 2 days. Reports taking omeprazole at home without much help. Gives history of recent travel to [place] where she was in contact with her daughter who was recovering from a viral illness. Reports associated poor oral intake secondary to decreased appetite and feeling to have cold like symptoms. Has chronic runny nose. Also reports right sided discomfort under her right breast which is intermittent and improves with support. Denies any history of fever, chest pain, SOB, cough, abd pain, diarrhea, urinary symptoms (frequency, burning, hematuria). Also denies any history of visual changes, LOC, rash, leg swelling. She has not been taking her medications since 2 days secondary to nausea. No other relevant history could be obtained. Physical Exam (per Admitting): General Appearance: WD/WN, no apparent distress Head: normocephalic, atraumatic Eyes: normal inspection, PERRL, EOMI ENT: normal ENT inspection, hearing grossly normal Neck: supple, trachea midline Respiratory/Chest: chest non-tender, lungs clear, normal breath sounds, no respiratory distress, no accessory muscle use Cardiovascular: no edema, no murmur, + irregularly irregular Abdomen/GI: normal bowel sounds, non tender, soft, no organomegaly Back: normal inspection Extremities/Musculoskelatal: normal inspection, no pedal edema Neurologic/Psych: column precaster II-XII nml as tested, no motor/sensory deficits, alert , normal mood/affect, oriented x 3 Skin: normal color, warm/dry, no rash Hospital Course SIRS: Likely Viral syndrome Presented with Tachycardia, leukocytosis SIRS parameters improving UA: possible UTI. denies urinary symptoms CXR: no signs of consolidation Gall bladder USD:no acute process S/P Ceftriaxone empirically for possible UTI. DC Abx. UTI ruled out PCR for flu: Negative Blood and Urine cultures:No growth Procalcitonin, lactate levels:Negative DC IV Fluids Generalized weakness; Likely secondary to acute illness PT/OT Right sided Chest discomfort: Likely not ACS, Likely GERD EKG: no signs of ischemia Cardiac enzymes negative Repeat EKG with chest pain Continue PO PPI GERD: Presents with belching Much improved Continue PPI takes over the counter omeprazole PRN Atrial fibrillation: Missed medications since 2 days continue sotalol, Pradaxa monitor in tele HTN: hold diuretics in setting of SIRS Stable Resume diuretics in AM is stable CKD III: Cr at baseline Monitor renal function HLP: continue statins DVT Px: On Pradaxa CODE STATUS: Full code Disposition: Plan to discharge home today Follow up with Dr.Manisha Aparicio on 01/04/17 at 2:45pm Seek immediate medical attention if your symptoms reoccur or worsen Total time spent on discharge = 33 minutes This includes examination of the patient, discharge planning, medication reconciliation, and communication with other providers. Discharge Instructions Discharge Instructions Date of Service Dec 31, 2016. Admission Reason for Admission: Generalized Weakness Discharge Discharge Diagnosis / Problem: SIRS: likely viral etiology Discharge Goals Goal(s): Decrease discomfort, Improve function Activity Recommendations Activity Limitations: resume your previous activity Exercise/Sports Limitations: as tolerated . Instructions / Follow-Up Instructions / Follow-Up Follow up with Dr.Manisha Aparicio on 01/04/17 at 2:45pm Seek immediate medical attention if your symptoms reoccur or worsen Current Hospital Diet Patient's current hospital diet: AHA Diet (Heart Healthy) Discharge Diet Recommended Diet: AHA Diet (Heart Healthy) Pending Studies Studies pending at discharge: no Medical Emergencies . Who to Call and When: Medical Emergencies: If at any time you feel your situation is an emergency, please call 911 immediately. . Non-Emergent Contact Non-Emergency issues call your: Primary Care Provider Call Non-Emergent contact if: you have a fever, your pain is not controlled, your pain is worsening, your pain is unusual for you, you have any medication questions . . "Provider Documentation" section prepared by Jomar Boone. . VTE Core Measure Inpt VTE Proph given/why not?: Other Anticoagulation (Pradaxa)
[2016-12-31 11:45] VITALS: BP 146/92; PULSE 70; TEMP 36.7; O2SAT 94
== END 2016-12-31 11:55 | disposition home or self-care (01) | DRG 866 ==
LOC: C.EDB 12:06 → C.2T 16:15 → ENRESERV 17:47 → C.MS4W 12-30 12:36
PROVIDERS: ADMIT Internal Medicine; ATTEND Internal Medicine
DX: B34.9 Viral infection, unspecified (principal); N39.0 Urinary tract infection, site not specified; I48.91 Unspecified atrial fibrillation; I12.9 Hypertensive chronic kidney disease with stage 1 through stage 4 chronic kidney disease, or unspecified chronic kidney disease; N18.3 Chronic kidney disease, stage 3 (moderate); K21.9 Gastro-esophageal reflux disease without esophagitis; Z87.891 Personal history of nicotine dependence